=== PATIENT | male | born 1975 | race Caucasian/White ===

== ENCOUNTER 2019-05-22 17:20 | Emergency (ER) | payer OTHER, SELFPAY ==
[2019-05-22] MEDS ORDERED: Sodium Chloride 0.9% 2,000 ML ONE (17:55)
[2019-05-22 18:02] LABS: #Basophils 0.1 thou/uL (0.0-0.2); #Eosinphils 0.1 thou/uL (0.0-0.7); #Lymphocytes 2.3 thou/uL (1.20-3.40); #Monocytes 1.4 thou/uL (0.11-0.59); %Basophils 0.9 % (0.0-1.0); %Eosinophils 0.9 % (0.0-10.0); %Lymphocytes 16.5 % (21.0-51.0); %Monocytes 9.9 % (0.0-10.0); %Neutrophils 71.8 % (42.0-75.0); Hemoglobin 17.3 g/dL (14.0-18.0); Mean Corpuscular HGB CONC 32.8 g/dL (32.0-36.0); Mean Corpuscular Hemoglobin 29.4 pg (27.0-31.0); Mean Corpuscular Volume 89.8 fL (78.0-98.0); Mean Platelet Volume 7.8 fL (7.4-10.4); Platelet Count 297 thou/uL (130-400); Red Blood Cell (RBC) Count 5.87 mill/uL (4.70-6.10)
[2019-05-22 18:14] LABS: ALT (SGPT) 129 U/L (8-55); AST (SGOT) 83 U/L (5-34); Albumin 5.3 g/dL (3.5-5.0); Alkaline Phosphatase 64 U/L (40-150); Anion Gap 22 mmol/L (10-20); BUN (Urea Nitrogen) 28 mg/dL (8.9-20.6); CK (CPK) 1645 U/L (30-200); Calc. Creatinine Clearance 0 mL/min (70-130); Calcium 11.2 mg/dL (7.8-10.44); Carbon Dioxide 24 mmol/L (22-29); Chloride 98 mmol/L (98-107); Estimated GFR-MDRD 19; Globulin 3.8 g/dL (2.4-3.5); Glucose 91 mg/dL (70-105); Potassium 4.7 mmol/L (3.5-5.1); Protein, Total 9.1 g/dL (6.0-8.3); Sodium 139 mmol/L (136-145)
[2019-05-22 18:35] LABS: Bilirubin, Total 0.9 mg/dL (0.2-1.2)
[2019-05-23] MEDS ORDERED: Sodium Chloride 0.9% 1,000 ML BAG ONE (17:30)
== END 2019-05-22 19:24 | disposition short-term general hospital (02) ==
LOC: MADERS 17:20
DX: E86.0 Dehydration (principal); N17.9 Acute kidney failure, unspecified; I95.9 Hypotension, unspecified; M62.82 Rhabdomyolysis; Z79.899 Other long term (current) drug therapy
CPT/HCPCS: 80053; 82550; 85025; 96360; J7050